=== PATIENT | female | born 1935 | race Caucasian/White ===

== ENCOUNTER 2018-08-14 18:39 | Emergency (ER) | payer MEDICARE, OTHER ==
[2018-08-14] MEDS ORDERED: Clindamycin HCl 150 MG Cap PO ONE (19:04)
--- NOTE | 2018-08-14 19:10 | EDM.PDOC ---
ED HPI GENERAL MEDICAL PROBLEM - General Chief Complaint: Skin Complaint Stated Complaint: CAT SCRATCHES Time Seen by Provider: 08/14/18 19:00 Source of Information: Reports: Patient History Limitations: Reports: No Limitations - History of Present Illness INITIAL COMMENTS - FREE TEXT/NARRATIVE: Redness and tenderness to inner right arm, scratched by own cat on wednesday. No fever or chills. Has been soaking in epsom salt but continues to get more red. 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) Right Lower Arm Pain Score (Numeric/FACES): 8 - Related Data Allergies Allergy/AdvReac Type Severity Reaction Status Date / Time calcium Allergy UNKOWN Verified 08/14/18 18:49 nicotine Allergy UNKNOWN Verified 08/14/18 18:49 Penicillins Allergy UNKNOWN Verified 08/14/18 18:49 [email or web address] Allergy Other Verified 08/14/18 18:49 Home Meds: Home Meds Albuterol/Ipratropium [DuoNeb 3.0-0.5 MG/3 ML] 1 each INH QID PRN 07/30/16 [ History] Budesonide [Budesonide EC] 3 mg PO BID 07/30/16 [History] oxyCODONE HCl/Acetaminophen [oxyCODONE-Acetaminophen 5-325] 1 tab PO QID [History] Gabapentin [Neurontin] 600 mg PO TID 08/14/18 [History] busPIRone [Buspar] 10 mg PO BID 08/14/18 [History] Past Medical History Cardiovascular History: Reports: High Cholesterol Respiratory History: Reports: COPD Gastrointestinal History: Reports: GERD Other Gastrointestinal History: ulcer Genitourinary History: Reports: None 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 Musculoskeletal History: Reports: Arthritis Neurological History: Reports: None Endocrine/Metabolic History: Reports: Hypothyroidism - Past Surgical History Cardiovascular Surgical History: Reports: Coronary Artery Bypass GI Surgical History: Reports: None Social & Family History - Family History Family Medical History: Noncontributory - Tobacco Use Smoking Status *Q: Current Every Day Smoker Years of Tobacco use: 63 Packs/Tins Daily: 1 Second Hand Smoke Exposure: Yes - Caffeine Use Caffeine Use: Reports: Coffee - Alcohol Use Days Per Week of Alcohol Use: 7 Number of Drinks Per Day: 1 Total Drinks Per Week: 7 Date of Last Drink: 08/14/18 - Recreational Drug Use Recreational Drug Use: No ED ROS GENERAL - Review of Systems Review Of Systems: ROS reveals no pertinent complaints other than HPI. ED EXAM, SKIN/RASH Exam: See Below Exam Limited By: No Limitations General Appearance: Alert, No Apparent Distress Eye Exam: Bilateral Eye: EOMI Ears: Normal External Exam, Hearing Grossly Normal Throat/Mouth: Normal Inspection Head: Atraumatic, Normocephalic Neck: Normal Inspection Respiratory/Chest: No Respiratory Distress, Normal Breath Sounds Cardiovascular: Normal Peripheral Pulses, Regular Rate, Rhythm GI/Abdominal: Normal Bowel Sounds, Soft Extremities: Normal Inspection, Normal Range of Motion Neurological: Alert, Oriented, Normal Cognition Psychiatric: Normal Affect Skin: Warm, Dry, Erythema, Wound/Incision Location, Skin: Upper Extremity, Right Characteristics: Confluent (12x5cm redness and warmth, 4 horizontal and vertical scratches above wrist), Erythematous. No: Vesicular Associated features: Warmth, Tenderness, Induration. No: Crusting, Weeping Course - Vital Signs Last Recorded V/S: Last Vital Signs Temp 98.5 F 08/14/18 18:56 Pulse 113 H 08/14/18 18:56 Resp 20 08/14/18 18:56 BP 130/84 08/14/18 18:56 Pulse Ox 97 08/14/18 18:56 - Orders/Labs/Meds Orders: Active Orders 24 hr Category Date Time Status Vaccines to be Administered [RC] PER UNIT ROUTINE Care 08/14/18 19:13 Ordered Meds: Medications Discontinued Medications Generic Name Dose Route Start Last Admin Trade Name Freq PRN Reason Stop Dose Admin Clindamycin HCl 300 mg 08/14/18 19:04 Cleocin PO 08/14/18 19:05 ONETIME ONE Diphtheria/Tetanus/Acell Pertussis 0.5 ml 08/14/18 19:13 Adacel IM 08/14/18 19:14 .ONCE ONE Departure - Departure Time of Disposition: 19:30 Disposition: Home, Self-Care 01 Condition: Good Clinical Impression: Cat scratch of forearm Qualifiers: Encounter type: initial encounter Laterality: right Qualified Code(s): S50.811A - Abrasion of right forearm, initial encounter; W55.03XA - Scratched by cat, initial encounter Cellulitis Qualifiers: Site of cellulitis: extremity Site of cellulitis of extremity: upper extremity Laterality: right Qualified Code(s): L03.113 - Cellulitis of right upper limb - Discharge Information *PRESCRIPTION DRUG MONITORING PROGRAM REVIEWED*: Not Applicable *COPY OF PRESCRIPTION DRUG MONITORING REPORT IN PATIENT MACK: Not Applicable Instructions: Cellulitis, Adult, [id number] Forms: ED Department Discharge Additional Instructions: keep area clean and dry tylenol 650mg every 4 hours as needed for discomfort clinic follow up if worsening or if fever clindamycin 300mg three times daily for one week probiotic - My Orders Last 24 Hours: My Active Orders 08/14/18 19:13 Vaccines to be Administered [RC] PER UNIT ROUTINE - Assessment/Plan Last 24 Hours: My Active Orders 08/14/18 19:13 Vaccines to be Administered [RC] PER UNIT ROUTINE
[2018-08-14] MEDS ORDERED: Diphtheria,Pertussis(Acell),Tetanus Vaccine 0.5 ML SDV IM ONE (19:13)
== END 2018-08-14 19:25 | disposition home or self-care (01) ==
LOC: DL.ED 18:39
DX: S50.811A Abrasion of right forearm, initial encounter (principal); L03.113 Cellulitis of right upper limb; E03.9 Hypothyroidism, unspecified; F17.210 Nicotine dependence, cigarettes, uncomplicated; Z88.0 Allergy status to penicillin; Z88.8 Allergy status to other drugs, medicaments and biological substances; Z23 Encounter for immunization; W55.03XA Scratched by cat, initial encounter
CPT/HCPCS: 90471; 90715; 99282; 99283; A9270

== ENCOUNTER 2018-11-26 07:02 | Inpatient (IN) | payer MEDICARE, OTHER ==
[2018-11-26] MEDS ORDERED: Acetaminophen 325 MG Tab PO ONE (07:16)
[2018-11-26] MEDS ORDERED: Albuterol/Ipratropium 3.0-0.5 MG/3 ML Neb Soln NEB ONE (07:40)
[2018-11-26] MEDS ORDERED: Albuterol/Ipratropium 3.0-0.5 MG/3 ML Neb Soln ONE (07:41)
--- NOTE | 2018-11-26 07:59 | EDM.PDOC ---
ED HPI GENERAL MEDICAL PROBLEM - General Chief Complaint: Respiratory Problem Stated Complaint: cant breathe [id number] Time Seen by Provider: 11/26/18 07:25 Source of Information: Reports: Patient History Limitations: Reports: No Limitations - History of Present Illness INITIAL COMMENTS - FREE TEXT/NARRATIVE: 83 year old female smoker with COPD & CAD presents with 24 hours of weakness and increase SOB, sore throat and sputum production. Developed a fever this am 101.8. Last duoneb at 0600. 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 Treatments - Related Data Allergies Allergy/AdvReac Type Severity Reaction Status Date / Time Penicillins Allergy Severe Airway Verified 11/26/18 08:29 Tightness nicotine Allergy Rash Verified 11/26/18 13:10 [email or web address] Allergy Other Verified 11/26/18 07:25 Home Meds: Home Meds Albuterol/Ipratropium [DuoNeb 3.0-0.5 MG/3 ML] 1 each INH QID PRN 07/30/16 [ History] oxyCODONE HCl/Acetaminophen [oxyCODONE-Acetaminophen 5-325] 1 tab PO QID [History] Gabapentin [Neurontin] 600 mg PO TID 08/14/18 [History] DULoxetine [Cymbalta] 60 mg PO DAILY 11/26/18 [History] Fluticasone/Salmeterol [Advair 250-50] 1 puff INH BID 11/26/18 [History] Past Medical History Cardiovascular History: Reports: High Cholesterol Respiratory History: Reports: COPD Gastrointestinal History: Reports: GERD Other Gastrointestinal History: ulcer Genitourinary History: Reports: None 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 Musculoskeletal History: Reports: Arthritis Neurological History: Reports: None Endocrine/Metabolic History: Reports: Hypothyroidism - Past Surgical History HEENT Surgical History: Reports: Tonsillectomy Cardiovascular Surgical History: Reports: Coronary Artery Bypass GI Surgical History: Reports: None Social & Family History - Family History Family Medical History: Noncontributory - Tobacco Use Smoking Status *Q: Current Every Day Smoker Years of Tobacco use: 40 Packs/Tins Daily: 1 - Caffeine Use Caffeine Use: Reports: Coffee - Alcohol Use Days Per Week of Alcohol Use: 3 Number of Drinks Per Day: 2 Total Drinks Per Week: 6 - Recreational Drug Use Recreational Drug Use: No ED ROS GENERAL - Review of Systems Review Of Systems: See Below Constitutional: Reports: Fever, Chills, Weakness, Fatigue, Decreased Appetite Respiratory: Reports: Shortness of Breath, Wheezing, Sputum Cardiovascular: Reports: No Symptoms Endocrine: Reports: Fatigue GI/Abdominal: Reports: No Symptoms : Reports: No Symptoms Skin: Reports: No Symptoms Neurological: Reports: No Symptoms Free Text/Narrative/Comment: Good support with daughter at bedside. ED EXAM, GENERAL - Physical Exam Exam: See Below Exam Limited By: No Limitations General Appearance: Alert, WD/WN, Mild Distress Eye Exam: Bilateral Eye: Normal Inspection Ears: Normal External Exam, Normal Canal, Hearing Grossly Normal, Normal TMs Nose: Normal Inspection, Normal Mucosa, No Blood Throat/Mouth: Normal Inspection, Normal Lips, Normal Voice Head: Atraumatic, Normocephalic Neck: Normal Inspection, Supple, Non-Tender Respiratory/Chest: Other (Decreased right LL) Peripheral Pulses: 3+: Radial (L), Radial (R), Dorsalis Pedis (L), Dorsalis Pedis (R) GI/Abdominal: Normal Bowel Sounds, Soft, Non-Tender, No Organomegaly, No Distention, No Mass Extremities: Normal Inspection, No Pedal Edema, Normal Capillary Refill Neurological: Alert, Oriented Psychiatric: Normal Affect, Normal Mood Skin Exam: Warm, Dry, Intact, Normal Color, No Rash Lymphatic: No Adenopathy Course - Vital Signs Text/Narrative:: Placed on 2L n/c. CBC, CMP, UA, lactic acid, CXR, EKG, troponin, Bld cultures x2 , sputum culture. Duoneb given Trop neg and EKG NSR CXR wtih Right lower and middle lobe pneumonia. lactic acid & creat nml. BNP 137. CBC elevated 14 without bands. Infused Azithromycin IV and Contacted Dr. Menard for admission CAP with leukocytosis. Admitted by Dr. Menard Last Recorded V/S: Last Vital Signs Temp 36.8 C 11/26/18 14:02 Pulse 84 11/26/18 14:02 Resp 20 11/26/18 14:02 BP 103/41 L 11/26/18 14:02 Pulse Ox 96 11/26/18 14:02 - Orders/Labs/Meds Orders: Active Orders 24 hr Category Date Time Status Oxygen Therapy [RC] PRN Care 11/26/18 08:55 Active Pneumonia Education [RC] Click to Edit Care 11/26/18 08:55 Active RT Aerosol Therapy [RC] ASDIRECTED Care 11/26/18 08:51 Active Chest 2V [CR] Urgent Exams 11/26/18 07:49 Taken CULTURE BLOOD [] Stat Lab 11/26/18 07:24 Received CULTURE BLOOD [] Stat Lab 11/26/18 07:32 Received CULTURE STREP A CONFIRMATION [] Stat Lab 11/26/18 07:54 Results STREP SCRN A RAPID W CULT CONF [] Stat Lab 11/26/18 07:54 Results Acetaminophen/oxyCODONE [Percocet 325-5 MG] Med 11/26/18 09:00 Active 1 tab PO QID Albuterol/Ipratropium [DuoNeb 3.0-0.5 MG/3 ML] Med 11/26/18 11:00 Active 3 ml INH QIDRT DULoxetine [Cymbalta] Med 11/26/18 09:15 Active 60 mg PO DAILY Gabapentin [Neurontin] Med 11/26/18 09:15 Active 600 mg PO TID Sodium Chloride 0.9% [Normal Saline] 1,000 ml Med 11/26/18 09:00 Active IV ASDIRECTED Blood Culture x2 Reflex Set [OM.PC] Stat Oth 11/26/18 07:49 Ordered Blood Culture x2 Reflex Set [OM.PC] Stat Ot 11/26/18 08:55 Ordered Medication Orders Acetaminophen (Tylenol) 650 mg PO Q4H PRN PRN Reason: Pain (Mild 1-3)/fever Albuterol/Ipratropium (Duoneb 3.0-0.5 Mg/3 Ml) 3 ml INH QIDRT [facility] Last Admin: 11/26/18 17:32 Dose: 3 ml Admin: 11/26/18 11:03 Dose: 3 ml Duloxetine HCl (Cymbalta) 60 mg PO DAILY [facility] Last Admin: 11/26/18 10:18 Dose: 60 mg Enoxaparin Sodium (Lovenox) 40 mg SUBCUT DAILY [facility] Last Admin: 11/26/18 10:17 Dose: 40 mg Gabapentin (Neurontin) 600 mg PO TID [facility] Last Admin: 11/26/18 15:02 Dose: 600 mg Admin: 11/26/18 10:18 Dose: 600 mg Sodium Chloride (Normal Saline) 1,000 mls @ 75 mls/hr IV ASDIRECTED [facility] Last Admin: 11/26/18 10:31 Dose: 75 mls/hr Levofloxacin/Dextrose 750 mg/ (Premix) 150 mls @ 150 mls/hr IV Q48H [facility] Loperamide HCl (Imodium) 2 mg PO TID PRN PRN Reason: Diarrhea Methylprednisolone Sodium Succinate (Solu-Medrol) 40 mg IVPUSH Q8H [facility] Last Admin: 11/26/18 17:32 Dose: 40 mg Admin: 11/26/18 10:29 Dose: 40 mg Mometasone Furoate/Formoterol Fumar (Dulera 200-5 Mcg) 2 puff IH BIDRT [facility] Last Admin: 11/26/18 18:19 Dose: 2 puff Nicotine (Habitrol) 21 mg TRDERM DAILY [facility] Last Admin: 11/26/18 13:05 Dose: 21 mg Oxycodone/Acetaminophen (Percocet 325-5 Mg) 1 tab PO QID [facility] Last Admin: 11/26/18 17:32 Dose: 1 tab Admin: 11/26/18 13:06 Dose: Not Given Admin: 11/26/18 10:19 Dose: 1 tab Sodium Chloride (Saline Flush) 10 ml FLUSH ASDIRECTED PRN PRN Reason: Keep Vein Open Labs: Laboratory Tests 11/26/18 11/26/18 11/26/18 Range/Units 07:24 07:24 07:24 WBC 14.1 H (5.0-10.0) 10^3/uL RBC 4.95 (4.2-5.4) 10^6/uL Hgb 14.3 D (12.0-16.0) g/dL Hct 43.7 (37.0-47.0) % MCV 88.3 (80-100) fL MCH 28.9 (27.0-34.0) pg MCHC 32.7 L (33.0-35.0) g/dL Plt Count 212 (150-450) 10^3/uL Neut % (Auto) 88.2 H (42.2-75.2) % Lymph % (Auto) 5.0 L (20.5-50.1) % [place]gett % (Auto) 6.3 (2-8) % Eos % (Auto) 0.3 L (1.0-3.0) % Baso % (Auto) 0.2 (0.0-1.0) % Sodium 135 (135-145) mmol/L Potassium 4.2 (3.6-5.0) mmol/L Chloride 98 L (101-111) mmol/L Carbon Dioxide 23.0 (21.0-31.0) mmol/L Anion Gap 18.2 BUN 16 (7-18) mg/dL Creatinine 0.8 (0.6-1.3) mg/dL Est Cr Clr Drug Dosing 43.62 mL/min Estimated GFR (MDRD) > 60 BUN/Creatinine Ratio 20.00 Glucose 102 (74-105) mg/dL Lactic Acid 1.7 (0.5-2.2) mmol/L Calcium 8.8 (8.4-10.2) mg/dl Total Bilirubin 0.7 (0.2-1.0) mg/dL AST 37 (10-42) IU/L ALT 24 (10-60) IU/L Alkaline Phosphatase 68 (42-121) IU/L Troponin I (0.00-0.08) ng/mL B-Natriuretic Peptide (0-100) pg/ml Total Protein 7.4 (6.7-8.2) g/dl Albumin 4.1 (3.2-5.5) g/dl Globulin 3.3 Albumin/Globulin Ratio 1.24 05/25/19 Range/Units 07:24 WBC (5.0-10.0) 10^3/uL RBC (4.2-5.4) 10^6/uL Hgb (12.0-16.0) g/dL Hct (37.0-47.0) % MCV (80-100) fL MCH (27.0-34.0) pg MCHC (33.0-35.0) g/dL Plt Count (150-450) 10^3/uL Neut % (Auto) (42.2-75.2) % Lymph % (Auto) (20.5-50.1) % Daggett % (Auto) (2-8) % Eos % (Auto) (1.0-3.0) % Baso % (Auto) (0.0-1.0) % Sodium (135-145) mmol/L Potassium (3.6-5.0) mmol/L Chloride (101-111) mmol/L Carbon Dioxide (21.0-31.0) mmol/L Anion Gap BUN (7-18) mg/dL Creatinine (0.6-1.3) mg/dL Est Cr Clr Drug Dosing mL/min Estimated GFR (MDRD) BUN/Creatinine Ratio Glucose (74-105) mg/dL Lactic Acid (0.5-2.2) mmol/L Calcium (8.4-10.2) mg/dl Total Bilirubin (0.2-1.0) mg/dL AST (10-42) IU/L ALT (10-60) IU/L Alkaline Phosphatase (42-121) IU/L Troponin I 0.01 (0.00-0.08) ng/mL B-Natriuretic Peptide 137 H (0-100) pg/ml Total Protein (6.7-8.2) g/dl Albumin (3.2-5.5) g/dl Globulin Albumin/Globulin Ratio Meds: Medications Generic Name Dose Route Start Last Admin Trade Name Freq PRN Reason Stop Dose Admin Acetaminophen 650 mg 11/26/18 08:59 Tylenol PO Q4H PRN Pain (Mild 1-3)/fever Albuterol/Ipratropium 3 ml 11/26/18 11:00 11/26/18 17:32 Duoneb 3.0-0.5 Mg/3 Ml INH 3 ml QIDRT [facility] Administration Duloxetine HCl 60 mg 11/26/18 09:15 11/26/18 10:18 Cymbalta PO 60 mg DAILY [facility] Administration Enoxaparin Sodium 40 mg 11/26/18 09:15 11/26/18 10:17 Lovenox SUBCUT 40 mg DAILY [facility] Administration Gabapentin 600 mg 11/26/18 09:15 11/26/18 15:02 Neurontin PO 600 mg TID [facility] Administration Sodium Chloride 1,000 mls @ 75 mls/hr 11/26/18 09:00 11/26/18 10:31 Normal Saline IV 75 mls/hr ASDIRECTED [facility] Administration Levofloxacin/Dextrose 750 mg/ 150 mls @ 150 mls/hr 11/28/18 10:00 Premix IV Q48H [facility] Loperamide HCl 2 mg 11/26/18 12:08 Imodium PO TID PRN Diarrhea Methylprednisolone Sodium Succinate 40 mg 11/26/18 10:00 11/26/18 17:32 Solu-Medrol IVPUSH 40 mg Q8H [facility] Administration Mometasone Furoate/Formoterol Fumar 2 puff 11/26/18 18:00 11/26/18 18:19 Dulera 200-5 Mcg IH 2 puff BIDRT [facility] Administration Nicotine 21 mg 11/26/18 10:15 11/26/18 13:05 Habitrol TRDERM 21 mg DAILY [facility] Administration Oxycodone/Acetaminophen 1 tab 11/26/18 09:00 11/26/18 17:32 Percocet 325-5 Mg PO 1 tab QID [facility] Administration Sodium Chloride 10 ml 11/26/18 10:53 Saline Flush FLUSH ASDIRECTED PRN Keep Vein Open Discontinued Medications Generic Name Dose Route Start Last Admin Trade Name Freq PRN Reason Stop Dose Admin Acetaminophen 650 mg 11/26/18 07:16 11/26/18 07:29 Tylenol PO 11/26/18 07:17 650 mg NOW ONE Administration Albuterol/Ipratropium Confirm 11/26/18 07:41 11/26/18 07:54 Duoneb 3.0-0.5 Mg/3 Ml Administered 11/26/18 07:42 3 ml Dose Administration 3 ml .ROUTE .STK-MED ONE Albuterol/Ipratropium 3 ml 11/26/18 07:40 11/26/18 08:52 Duoneb 3.0-0.5 Mg/3 Ml NEB 11/26/18 07:41 Not Given ONETIME ONE Azithromycin 500 mg/ Sodium 250 mls @ 250 mls/hr 11/26/18 08:26 11/26/18 08: 38 Chloride IV 11/26/18 09:25 250 mls/hr ONETIME ONE Administration Levofloxacin/Dextrose 750 mg/ 150 mls @ 150 mls/hr 11/26/18 09:00 11/26/18 10 :19 Premix IV 150 mls/hr Q24H [facility] Administration Non-Formulary Medication 3 mg 11/26/18 09:00 11/26/18 13:08 Budesonide [Budesonide Ec] PO Not Given BID [facility] Departure - Departure Time of Disposition: 09:30 Disposition: Admitted As Inpatient 68 Clinical Impression: CAP (community acquired pneumonia), Leukocytosis, COPD (chronic obstructive pulmonary disease) - Discharge Information *PRESCRIPTION DRUG MONITORING PROGRAM REVIEWED*: Not Applicable *COPY OF PRESCRIPTION DRUG MONITORING REPORT IN PATIENT MACK: Not Applicable - My Orders Last 24 Hours: My Active Orders 11/26/18 07:24 CULTURE BLOOD [BC] Stat 11/26/18 07:32 CULTURE BLOOD [BC] Stat 11/26/18 07:49 Chest 2V [CR] Urgent Blood Culture x2 Reflex Set [OM.PC] Stat 11/26/18 07:54 CULTURE STREP A CONFIRMATION [RM] Stat STREP SCRN A RAPID W CULT CONF [RM] Stat 11/26/18 08:51 RT Aerosol Therapy [RC] ASDIRECTED - Assessment/Plan Last 24 Hours: My Active Orders 11/26/18 07:24 CULTURE BLOOD [BC] Stat 11/26/18 07:32 CULTURE BLOOD [BC] Stat 11/26/18 07:49 Chest 2V [CR] Urgent Blood Culture x2 Reflex Set [OM.PC] Stat 11/26/18 07:54 CULTURE STREP A CONFIRMATION [RM] Stat STREP SCRN A RAPID W CULT CONF [RM] Stat 11/26/18 08:51 RT Aerosol Therapy [RC] ASDIRECTED Plan: Admission to hospital by Dr. Menard.
[2018-11-26 08:08] LABS: ANION GAP 18.2; CHLORIDE,CL 98 mmol/L (101-111); SODIUM,NA 135 mmol/L (135-145)
[2018-11-26] MEDS ORDERED: Azithromycin 500 MG in Sodium Chloride 0.9% 250 ML IV ONE (08:26)
[2018-11-26] MEDS ORDERED: Acetaminophen 325 MG Tab PO PRN (08:59)
[2018-11-26] MEDS ORDERED: Non-Formulary Medication 1 Each (Budesonide [Budesonide Ec] 3 MG) PO SCH (09:00)
[2018-11-26] MEDS ORDERED: Levofloxacin/Dextrose 5%-Water 750 MG in Premix Bag 1 BAG IV SCH (09:00)
--- NOTE | 2018-11-26 10:13 | HP ---
CHIEF COMPLAINT: Shortness of breath. HISTORY OF PRESENT ILLNESS: The patient is an 83-year-old lady who was admitted through the emergency room because the patient was complaining of increasing shortness of breath that started for the last 24 hours and this is also complicated by a productive cough with phlegm, fever and chills, and generalized weakness. She denies though any chest pain, orthopnea, PND, abdominal pain, pedal edema, nausea, vomiting, or any other associated symptoms. Because of this, she presented to the emergency room and she was noted to have right middle lobe pneumonia. She was then admitted for further evaluation and management. PAST MEDICAL HISTORY: Remarkable for COPD on oxygen, and she is a smoker and continues to smoke about a pack a day. She has history of coronary artery disease and coronary artery bypass graft, hypothyroidism, arthritis, and gastroesophageal reflux. SOCIAL HISTORY: She is a . Smokes about a pack a day and drinks alcohol occasionally. FAMILY HISTORY: Noncontributory. REVIEW OF SYSTEMS: As in HPI. The rest of the review of systems is negative. MEDICATIONS: DuoNeb, budesonide, oxycodone, gabapentin, and BuSpar. ALLERGIES: Penicillin, varenicline, nicotine, and calcium. PHYSICAL EXAMINATION: General: The patient is alert and oriented, in mild respiratory distress, on oxygen per nasal cannula. Vital Signs: Blood pressure is 130/65, pulse of 118, respiration of 24, temperature of 101.8, and saturation is 94% on 1.5 L per nasal cannula. SHENT: Normocephalic. There are pink palpebral conjunctivae. Sclerae anicteric. No JVD. No lymphadenopathy. Heart: Regular. No gallops. No rubs. Lungs: Has diminished breath sounds on both bases with faint crackles on the right lung field. Breath sounds equal. Abdomen: Soft and nontender. Bowel sounds positive. Extremities: Negative for any pedal edema. No calf tenderness. LABORATORY WORKUP: Chest x-ray, my reading, is remarkable for COPD and right middle lobe pneumonia. CBC: WBC is 14.1 with 88.2 neutrophils. Hemoglobin and hematocrit are within normal limits. Platelet is 212. Comp panel: Chloride is 98. The rest of the panel unremarkable. ADMITTING DIAGNOSES: 1. Right middle lobe pneumonia. 2. Chronic obstructive pulmonary disease exacerbation. 3. Coronary artery disease and history of coronary artery bypass graft. 4. Tobacco dependence. 5. Arthritis. 6. Gastroesophageal reflux. TREATMENT PLAN: The patient is going to be admitted to General Medicine floor. She will be started on IV antibiotics and IV steroids, and will be on bronchodilators and Lovenox for DVT prophylaxis, and the rest of the management as necessary. The patient is a [id number] and [id number]. [facility] /[id number]
[2018-11-26] MEDS: Enoxaparin 40 MG/0.4 ML Syringe SUBCUT SCH (10:17)
[2018-11-26] MEDS: DULoxetine 30 MG Cap PO SCH (10:18)
[2018-11-26] MEDS: Gabapentin 300 MG Cap PO SCH ×3 (10:18→21:53)
[2018-11-26] MEDS: Acetaminophen/oxyCODONE 325-5 MG Tab PO SCH ×4 (10:19→21:53)
[2018-11-26] MEDS: methylPREDNISolone Sodium Succinate 40 MG/1 ML SDV IVPUSH SCH ×2 (10:29→17:32)
[2018-11-26] MEDS: Sodium Chloride 0.9% 1,000 ML IV SCH (10:31)
[2018-11-26] MEDS: Albuterol/Ipratropium 3.0-0.5 MG/3 ML Neb Soln INH SCH ×3 (11:03→21:52)
[2018-11-26] MEDS ORDERED: Loperamide 2 MG Cap PO PRN (12:08)
[2018-11-26] MEDS: Nicotine 21 MG/24 Hr Patch TRDERM SCH (13:05)
[2018-11-26] MEDS: Formoterol/Mometasone 200-5 MCG 8.8 GM Inhaler IH SCH (18:19)
[2018-11-27] MEDS: Sodium Chloride 0.9% 1,000 ML IV SCH (00:45)
[2018-11-27] MEDS: methylPREDNISolone Sodium Succinate 40 MG/1 ML SDV IVPUSH SCH ×3 (02:23→17:42)
[2018-11-27] MEDS: Formoterol/Mometasone 200-5 MCG 8.8 GM Inhaler IH SCH ×2 (06:29→17:42)
[2018-11-27 06:46] LABS: CHLORIDE,CL 103 mmol/L (101-111); SODIUM,NA 137 mmol/L (135-145)
[2018-11-27] MEDS: Albuterol/Ipratropium 3.0-0.5 MG/3 ML Neb Soln INH SCH ×4 (07:27→20:49)
[2018-11-27] MEDS: Acetaminophen/oxyCODONE 325-5 MG Tab PO SCH ×4 (09:03→20:48)
[2018-11-27] MEDS: DULoxetine 30 MG Cap PO SCH (09:03)
[2018-11-27] MEDS: Gabapentin 300 MG Cap PO SCH ×3 (09:03→20:48)
[2018-11-27] MEDS: Nicotine 21 MG/24 Hr Patch TRDERM SCH (09:04)
[2018-11-27] MEDS: Enoxaparin 40 MG/0.4 ML Syringe SUBCUT SCH (09:04)
[2018-11-28] MEDS: Sodium Chloride 0.9% 10 ML Syringe FLUSH PRN ×2 (02:24→02:31)
[2018-11-28] MEDS: methylPREDNISolone Sodium Succinate 40 MG/1 ML SDV IVPUSH SCH (02:24)
[2018-11-28] MEDS: Albuterol/Ipratropium 3.0-0.5 MG/3 ML Neb Soln INH SCH ×4 (07:07→21:19)
[2018-11-28] MEDS: Enoxaparin 40 MG/0.4 ML Syringe SUBCUT SCH (09:08)
[2018-11-28] MEDS: Acetaminophen/oxyCODONE 325-5 MG Tab PO SCH ×4 (09:08→21:18)
[2018-11-28] MEDS: Gabapentin 300 MG Cap PO SCH ×3 (09:08→21:17)
[2018-11-28] MEDS: DULoxetine 30 MG Cap PO SCH (09:08)
[2018-11-28] MEDS: Nicotine 21 MG/24 Hr Patch TRDERM SCH (09:09)
[2018-11-28] MEDS: Formoterol/Mometasone 200-5 MCG 8.8 GM Inhaler IH SCH ×2 (09:11→17:57)
[2018-11-28] MEDS ORDERED: Levofloxacin/Dextrose 5%-Water 750 MG in Premix Bag 1 BAG IV SCH (10:00)
--- NOTE | 2018-11-28 10:15 | PN ---
DATE: 11/28/2018 SUBJECTIVE: The patient continues to do well and sputum culture showing Enterobacter, which is susceptible to levofloxacin. The patient denies any worsening of shortness of breath, and she feels though that she is feeling slightly jittery with the Solu-Medrol, but she denies any chest pain, orthopnea, PND, abdominal pain, nor any other complaints. OBJECTIVE: Vital Signs: Blood pressure is 137/64, pulse of 88, respirations 20, and temperature of 98.1, and saturation is 93% on room air. Heart: Regular rate and rhythm. Normal S1 and S2. No gallops. No rubs. Lungs: Equal bilaterally. There is still some mild occasional wheeze on the right lung field, but the breath sounds are equal. Abdomen: Soft, nontender. Bowel sounds positive. Extremities: Negative for any significant pedal edema. No calf tenderness. MEDICATIONS: Reviewed. PLAN: We will continue with her present management. I am going to discontinue Solu-Medrol and we will change this to oral prednisone. [facility] /[id number]
[2018-11-28] MEDS: predniSONE 20 MG Tab PO SCH (12:26)
[2018-11-29] MEDS: Albuterol/Ipratropium 3.0-0.5 MG/3 ML Neb Soln INH SCH ×2 (07:24→11:13)
--- NOTE | 2018-11-29 07:30 | PN ---
DATE: 11/27/2018 SUBJECTIVE: The patient this morning was feeling slightly better and she is not even wearing her oxygen as she only uses oxygen at home during nighttime. The patient denies any chest pain, palpitation, orthopnea, PND, nor any other complaints. LABORATORY DATA: Lab workup this morning, CBC; WBC is 14.9, hemoglobin is 12.1, hematocrit is 37.2, platelet is 202. Chem-6; BUN is 21 and glucose is 138. The rest of the panel unremarkable. OBJECTIVE: Vital Signs: Blood pressure is 93/59, pulse of 93, respirations 20, and temperature of 97.8. Heart: Regular rate and rhythm. Normal S1 and S2. No gallops. No rubs. Lungs: Diminished breath sounds on both bases, but no significant crackles. No wheezing. Abdomen: Soft, nontender. Bowel sounds positive. Extremities: Negative for any pedal edema. No calf tenderness. MEDICATIONS: Reviewed. PLAN: We will continue with her IV antibiotics (Levaquin) and the rest of her management. [facility] /[id number]
[2018-11-29] MEDS ORDERED: predniSONE 20 MG Tab PO SCH (08:00)
[2018-11-29] MEDS: Acetaminophen/oxyCODONE 325-5 MG Tab PO SCH (09:30)
[2018-11-29] MEDS: DULoxetine 30 MG Cap PO SCH (09:31)
[2018-11-29] MEDS: Gabapentin 300 MG Cap PO SCH (09:32)
[2018-11-29] MEDS: predniSONE 20 MG Tab PO SCH (09:33)
[2018-11-29] MEDS: Nicotine 21 MG/24 Hr Patch TRDERM SCH (09:34)
[2018-11-29] MEDS: Enoxaparin 40 MG/0.4 ML Syringe SUBCUT SCH (09:35)
[2018-11-29] MEDS: Formoterol/Mometasone 200-5 MCG 8.8 GM Inhaler IH SCH (09:35)
--- NOTE | 2018-11-29 11:14 | PCM.DCSUM1 ---
Discharge Summary - Hospital Course Free Text/Narrative:: The patient presented to the emergency room with complaint of cough and shortness of breath. This was going on for several days. She was found to have leukocytosis and chest x-ray suggested pneumonia. Patient was diagnosed with community-acquired pneumonia and started on intravenous antibiotics levofloxacin. She is allergic to penicillin. Patient is feeling better and will be discharged home. Final diagnosis Community-acquired pneumonia COPD exacerbation Coronary artery disease status post coronary artery bypass graft Tobacco use disorder - Discharge Data Discharge Date: 11/29/18 Discharge Disposition: Home, Self-Care 01 Condition: Good - Patient Instructions Other/Special Instructions: f/up with PMD in one week - Discharge Plan *PRESCRIPTION DRUG MONITORING PROGRAM REVIEWED*: Not Applicable *COPY OF PRESCRIPTION DRUG MONITORING REPORT IN PATIENT MACK: Not Applicable Prescriptions/Med Rec: levoFLOXacin [Levaquin] 750 mg PO DAILY #7 tab predniSONE [Prednisone] 10 mg PO DAILY #4 tablet Home Medications: Home Meds Albuterol/Ipratropium [DuoNeb 3.0-0.5 MG/3 ML] 1 each INH QID PRN 07/30/16 [ History] oxyCODONE HCl/Acetaminophen [oxyCODONE-Acetaminophen 5-325] 1 tab PO QID [History] Gabapentin [Neurontin] 600 mg PO TID 08/14/18 [History] DULoxetine [Cymbalta] 60 mg PO DAILY 11/26/18 [History] Fluticasone/Salmeterol [Advair 250-50] 1 puff INH BID 11/26/18 [History] levoFLOXacin [Levaquin] 750 mg PO DAILY #7 tab 11/29/18 [Rx] predniSONE [Prednisone] 10 mg PO DAILY #4 tablet 11/29/18 [Rx] Patient Handouts: Steps to Quit Smoking, [id number], Coping with Quitting Smoking, Levofloxacin tablets, Prednisone tablets, Community-Acquired Pneumonia , Adult, [id number] Referrals: Kell Lin PA [Primary Care Provider] - - Discharge Summary/Plan Comment DC Time >30 min.: No - Review of Systems General: Reports: No Symptoms Pulmonary: Reports: Cough Cardiovascular: Reports: No Symptoms Gastrointestinal: Reports: No Symptoms Genitourinary: Reports: No Symptoms - Patient Data Vitals - Most Recent: Last Vital Signs Temp 36.3 C 05/28/19 07:00 Pulse 90 11/29/18 07:24 Resp 20 11/29/18 07:00 BP 136/77 11/29/18 07:00 Pulse Ox 96 11/29/18 08:00 Weight - Most Recent: 65.68 kg I&O - Last 24 hours: Intake & Output 11/28/18 11/29/18 11/29/18 22:59 06:59 14:59 Intake Total 360 100 Output Total 500 Balance 360 -500 100 ADRIEL Results - Last 24 hrs: Microbiology 11/26/18 07:32 Aerobic Blood Culture - Preliminary Blood - Venous - Lab Draw NO GROWTH AFTER 3 DAYS Anaerobic Blood Culture - Preliminary NO GROWTH AFTER 3 DAYS 11/26/18 07:24 Aerobic Blood Culture - Preliminary Blood - Venous NO GROWTH AFTER 3 DAYS Anaerobic Blood Culture - Preliminary NO GROWTH AFTER 3 DAYS 11/26/18 09:06 Gram Stain - Final Sputum - Expectorated Sputum Culture - Final Enterobacter Cloacae Med Orders - Current: Current Medications Acetaminophen (Tylenol) 650 mg PO Q4H PRN PRN Reason: Pain (Mild 1-3)/fever Albuterol/Ipratropium (Duoneb 3.0-0.5 Mg/3 Ml) 3 ml INH QIDRT COUNTS INCLUDE 234 BEDS AT THE [facility] Last Admin: 11/29/18 07:24 Dose: 3 ml Duloxetine HCl (Cymbalta) 60 mg PO DAILY COUNTS INCLUDE 234 BEDS AT THE [facility] Last Admin: 11/29/18 09:31 Dose: 60 mg Enoxaparin Sodium (Lovenox) 40 mg SUBCUT DAILY COUNTS INCLUDE 234 BEDS AT THE [facility] Last Admin: 11/29/18 09:35 Dose: 40 mg Gabapentin (Neurontin) 600 mg PO TID COUNTS INCLUDE 234 BEDS AT THE [facility] Last Admin: 11/29/18 09:32 Dose: 600 mg Levofloxacin/Dextrose 750 mg/ (Premix) 150 mls @ 150 mls/hr IV Q48H COUNTS INCLUDE 234 BEDS AT THE [facility] Last Admin: 11/28/18 10:18 Dose: 150 mls/hr Loperamide HCl (Imodium) 2 mg PO TID PRN PRN Reason: Diarrhea Last Admin: 11/28/18 16:44 Dose: 2 mg Mometasone Furoate/Formoterol Fumar (Dulera 200-5 Mcg) 2 puff IH BIDRT COUNTS INCLUDE 234 BEDS AT THE [facility] Last Admin: 11/29/18 09:35 Dose: 2 puff Nicotine (Habitrol) 21 mg TRDERM DAILY COUNTS INCLUDE 234 BEDS AT THE [facility] Last Admin: 11/29/18 09:34 Dose: 21 mg Oxycodone/Acetaminophen (Percocet 325-5 Mg) 1 tab PO QID COUNTS INCLUDE 234 BEDS AT THE [facility] Last Admin: 11/29/18 09:30 Dose: 1 tab Prednisone (Prednisone) 40 mg PO WITHBREAKFAST COUNTS INCLUDE 234 BEDS AT THE [facility] Last Admin: 11/29/18 09:33 Dose: 40 mg Sodium Chloride (Saline Flush) 10 ml FLUSH ASDIRECTED PRN PRN Reason: Keep Vein Open Last Admin: 11/28/18 02:31 Dose: 10 ml Discontinued Medications Acetaminophen (Tylenol) 650 mg PO NOW ONE Stop: 11/26/18 07:17 Last Admin: 11/26/18 07:29 Dose: 650 mg Albuterol/Ipratropium (Duoneb 3.0-0.5 Mg/3 Ml) Confirm Administered Dose 3 ml .ROUTE .STK-MED ONE Stop: 11/26/18 07:42 Last Admin: 11/26/18 07:54 Dose: 3 ml Albuterol/Ipratropium (Duoneb 3.0-0.5 Mg/3 Ml) 3 ml NEB ONETIME ONE Stop: 11/26/18 07:41 Last Admin: 11/26/18 08:52 Dose: Not Given Azithromycin 500 mg/ Sodium (Chloride) 250 mls @ 250 mls/hr IV ONETIME ONE Stop: 11/26/18 09:25 Last Admin: 11/26/18 08:38 Dose: 250 mls/hr Levofloxacin/Dextrose 750 mg/ (Premix) 150 mls @ 150 mls/hr IV Q24H COUNTS INCLUDE 234 BEDS AT THE [facility] Last Admin: 11/26/18 10:19 Dose: 150 mls/hr Sodium Chloride (Normal Saline) 1,000 mls @ 75 mls/hr IV ASDIRECTED COUNTS INCLUDE 234 BEDS AT THE [facility] Last Admin: 11/27/18 00:45 Dose: 75 mls/hr Methylprednisolone Sodium Succinate (Solu-Medrol) 40 mg IVPUSH Q8H COUNTS INCLUDE 234 BEDS AT THE [facility] Last Admin: 11/28/18 02:24 Dose: 40 mg Non-Formulary Medication (Budesonide [Budesonide Ec]) 3 mg PO BID COUNTS INCLUDE 234 BEDS AT THE [facility] Last Admin: 11/26/18 13:08 Dose: Not Given Prednisone (Prednisone) 40 mg PO WITHBREAKFAST COUNTS INCLUDE 234 BEDS AT THE [facility] - Exam General: Reports: Alert, Oriented, Cooperative HEENT: Reports: Pupils Equal, Pupils Reactive, EOMI, Mucous Membr. Moist/[place] Neck: Reports: Supple Lungs: Reports: Clear to Auscultation, Normal Respiratory Effort
== END 2018-11-29 11:30 | disposition home or self-care (01) | DRG 190 ==
LOC: DL.ED 07:02 → DL.MS 08:44 → UNDOADMIN 08:44 → DL.MS 08:59
PROVIDERS: ADMIT Internal Medicine; ATTEND Hospitalist
DX: J44.0 Chronic obstructive pulmonary disease with (acute) lower respiratory infection (principal); J18.1 Lobar pneumonia, unspecified organism; J44.1 Chronic obstructive pulmonary disease with (acute) exacerbation; I25.10 Atherosclerotic heart disease of native coronary artery without angina pectoris; Z66 Do not resuscitate; E78.00 Pure hypercholesterolemia, unspecified; K21.9 Gastro-esophageal reflux disease without esophagitis; M19.90 Unspecified osteoarthritis, unspecified site; M19.91 Primary osteoarthritis, unspecified site; E03.9 Hypothyroidism, unspecified; F17.210 Nicotine dependence, cigarettes, uncomplicated; Z88.0 Allergy status to penicillin; Z95.1 Presence of aortocoronary bypass graft; Z99.81 Dependence on supplemental oxygen; Z88.8 Allergy status to other drugs, medicaments and biological substances; Z79.899 Other long term (current) drug therapy; R05 Cough; R06.02 Shortness of breath; R53.1 Weakness; R50.9 Fever, unspecified; R09.3 Abnormal sputum; R53.83 Other fatigue; R06.2 Wheezing; D72.829 Elevated white blood cell count, unspecified
CPT/HCPCS: 36415; 71046; 80053; 83605; 83880; 84484; 85025; 87040 ×2; 87081; 87430; 94640; 96365; 99285; A9270; J0456; J7050; 80048; 81001; 87070; 87077; 87186; 87205; 94010; 94667; A4217; J1650; J1956; J2920; J7030; J7620-GY

== ENCOUNTER 2019-12-04 12:29 | Emergency (ER) | payer MEDICARE, OTHER ==
--- NOTE | 2019-12-04 12:51 | EDM.PDOC ---
ED HPI GENERAL MEDICAL PROBLEM - General Chief Complaint: Chest Pain Stated Complaint: PRESSURE IN CHEST Time Seen by Provider: 12/04/19 12:49 Source of Information: Reports: Patient, Old Records, RN, RN Notes Reviewed History Limitations: Reports: No Limitations - History of Present Illness INITIAL COMMENTS - FREE TEXT/NARRATIVE: Pt presents to ER from home by POV with c/o left sided chest pressure with shortness of breath, fatigue, and generalized weakness for the past 2 weeks. She has tried her Nitroglycerin at home a few times without relief. Pt saw primary provider last week and was started on Levaquin, and Prednisone but she has seen no improvement. Pt uses supplemental home oxygen every night on 5L/min , but does not use it during the day. She used Budesonide nebulizer twice a day , and Albuterol nebulizer about four times a day. Pt denies cough, eye irritation/drainage, loss of taste or smell, red tongue, rash or skin lesions, abdominal pain, N/V/D, fevers, chills, recent travel, or known exposure to confirmed or suspected Covid-19 cases. Onset: Gradual Duration: Week(s): (2), Constant Location: Reports: Chest Quality: Reports: Pressure Severity: Moderate Improves with: Reports: None Worsens with: Reports: None Associated Symptoms: Reports: No Other Symptoms Chest Pain Score (Numeric/FACES): 8 - Related Data Allergies Allergy/AdvReac Type Severity Reaction Status Date / Time Penicillins Allergy Severe Airway Verified 11/26/18 08:29 Tightness nicotine Allergy Rash Verified 11/26/18 13:10 [email or web address] Allergy Other Verified 11/26/18 07:25 Home Meds: Home Meds Albuterol/Ipratropium [DuoNeb 3.0-0.5 MG/3 ML] 1 each INH QID PRN 07/30/16 [ History] oxyCODONE HCl/Acetaminophen [oxyCODONE-Acetaminophen 5-325] 1 tab PO QID [History] Gabapentin [Neurontin] 600 mg PO TID 08/14/18 [History] DULoxetine [Cymbalta] 60 mg PO DAILY 11/26/18 [History] Fluticasone/Salmeterol [Advair 250-50] 1 puff INH BID 11/26/18 [History] levoFLOXacin [Levaquin] 750 mg PO DAILY #7 tab 11/29/18 [Rx] predniSONE [Prednisone] 10 mg PO DAILY #4 tablet 11/29/18 [Rx] Past Medical History Cardiovascular History: Reports: CAD, High Cholesterol Respiratory History: Reports: COPD Gastrointestinal History: Reports: GERD, Hiatal Hernia, Irritable Bowel Syndrome Other Gastrointestinal History: ulcer Genitourinary History: Reports: None Other Genitourinary History: bladder prolapse WORKS MANAGER History: Reports: None Musculoskeletal History: Reports: Arthritis, Back Pain, Chronic, Connective Tissue Disease, Osteoarthritis, Other (See Below) (chronic pain syndrome) Neurological History: Reports: None Psychiatric History: Reports: Anxiety, Depression Endocrine/Metabolic History: Reports: Hypothyroidism - Past Surgical History HEENT Surgical History: Reports: Tonsillectomy Cardiovascular Surgical History: Reports: Coronary Artery Bypass GI Surgical History: Reports: None Social & Family History - Family History Family Medical History: Noncontributory - Tobacco Use Smoking Status *Q: Current Every Day Smoker Tobacco Use Within Last Twelve Months: Cigarettes Years of Tobacco use: 60 Packs/Tins Daily: 0.5 (previously 1 ppd x40+ yrs) Smoking Cessation Information Provided To Patient: Patient Refused Second Hand Smoke Exposure: No - Caffeine Use Caffeine Use: Reports: Coffee - Living Situation & Occupation Occupation: Retired ED ROS GENERAL - Review of Systems Review Of Systems: Comprehensive ROS is negative, except as noted in HPI. ED EXAM, GENERAL - Physical Exam Exam: See Below Exam Limited By: No Limitations General Appearance: Alert, WD/WN, No Apparent Distress Eye Exam: Bilateral Eye: Normal Inspection Nose: Normal Inspection, Normal Mucosa, No Blood Throat/Mouth: Normal Inspection, Normal Lips, Normal Teeth, Normal Gums, Normal Oropharynx, Normal Voice, No Airway Compromise Head: Atraumatic, Normocephalic Neck: Normal Inspection, Supple, Non-Tender, Full Range of Motion Respiratory/Chest: No Respiratory Distress, No Accessory Muscle Use, Chest Non- Tender, Decreased Breath Sounds, Wheezing. No: Rales, Rhonchi, Stridor Cardiovascular: Normal Peripheral Pulses, Regular Rate, Rhythm, No Edema GI/Abdominal: Normal Bowel Sounds, Soft, Non-Tender, No Organomegaly, No Distention, No Abnormal Bruit, No Mass Back Exam: Normal Inspection Extremities: Normal Inspection, Normal Range of Motion, Non-Tender, Normal Capillary Refill, No Pedal Edema Neurological: Alert, Oriented, CN II-XII Intact, Normal Cognition, No Motor/ Sensory Deficits Psychiatric: Normal Affect, Normal Mood Skin Exam: Warm, Dry, Intact, Normal Color, No Rash EKG INTERPRETATION EKG Date: 12/04/19 Time: 12:48 Rhythm: Other (SR) Rate (Beats/Min): 87 [place]: Normal P-Wave: Present QRS: Normal ST-T: Normal QT: Normal Comparison: No Change Course - Vital Signs Last Recorded V/S: Last Vital Signs Temp 98 F 12/04/19 12:53 Pulse 89 12/04/19 12:53 Resp 16 12/04/19 12:53 BP 133/55 L 12/04/19 12:53 Pulse Ox 94 L 12/04/19 12:53 - Orders/Labs/Meds Orders: Active Orders 24 hr Category Date Time Status EKG 12 Lead [EKG Documentation Completion] [RC] STAT Care 12/04/19 12:49 Active Peripheral IV Care [RC] . DIRECTED Care 12/04/19 12:55 Active Chest 1V Frontal [CR] Stat Exams 12/04/19 12:55 Taken Sodium Chloride 0.9% [Saline Flush] Med 12/04/19 12:55 Active 10 ml FLUSH ASDIRECTED PRN Peripheral IV Insertion Adult [OM.PC] Stat Oth 12/04/19 12:55 Ordered Medication Orders Sodium Chloride (Saline Flush) 10 ml FLUSH ASDIRECTED PRN PRN Reason: Keep Vein Open Labs: Laboratory Tests 12/04/19 12/04/19 Range/Units 12:45 12:45 WBC 8.2 (5.0-10.0) 10^3/uL RBC 4.08 L (4.2-5.4) 10^6/uL Hgb 12.2 (12.0-16.0) g/dL Hct 38.1 (37.0-47.0) % MCV 93.4 D (80-100) fL MCH 29.9 (27.0-34.0) pg MCHC 32.0 L (33.0-35.0) g/dL Plt Count 169 (150-450) 10^3/uL Neut % (Auto) 63.0 (42.2-75.2) % Lymph % (Auto) 24.8 (20.5-50.1) % Gregg % (Auto) 9.3 H (2-8) % Eos % (Auto) 2.7 (1.0-3.0) % Baso % (Auto) 0.2 (0.0-1.0) % Sodium 141 (136-145) mmol/L Potassium 3.9 (3.5-5.1) mmol/L Chloride 103 (98-107) mmol/L Carbon Dioxide 30 (21-32) mmol/L Anion Gap 11.9 (7-13) mEq/L BUN 11 (7-18) mg/dL Creatinine 1.01 (0.55-1.02) mg/dL Est Cr Clr Drug Dosing 37.08 mL/min Estimated GFR (MDRD) 52 BUN/Creatinine Ratio 10.9 (No establ ref range) Glucose 128 H (74-99) mg/dL Calcium 8.0 L (8.5-10.1) mg/dL Total Bilirubin 0.3 (0.2-1.0) mg/dL AST 11 L (15-37) U/L ALT 16 (14-59) U/L Alkaline Phosphatase 67 (46-116) U/L Troponin I < 0.017 (0.000-0.056) ng/mL B-Natriuretic Peptide 113 H (0-100) pg/ml Total Protein 6.3 L (6.4-8.2) g/dL Albumin 3.3 L (3.4-5.0) g/dL Globulin 3.0 Albumin/Globulin Ratio 1.10 Lipase 70 L (73-393) U/L Meds: Medications Generic Name Dose Route Start Last Admin Trade Name Freq PRN Reason Stop Dose Admin Sodium Chloride 10 ml 12/04/19 12:55 Saline Flush FLUSH ASDIRECTED PRN Keep Vein Open - Radiology Interpretation Free Text/Narrative:: Chest XR: COPD, no focal infiltrates, see Rad. report. - Re-Assessments/Exams Free Text/Narrative Re-Assessment/Exam: 12/04/19 14:02 Walking O2 study finds pt maintains 94-96% oxygen saturations. Departure - Departure Time of Disposition: 14:02 Disposition: Home, Self-Care 01 Condition: Good Clinical Impression: Acute exacerbation of chronic obstructive pulmonary disease (COPD), Atypical chest pain Instructions: Nonspecific Chest Pain, Adult, [id number], Chronic Obstructive Pulmonary Disease Exacerbation, [id number] Forms: ED Department Discharge Additional Instructions: Rx: Prednisone 20mg Continue your breathing treatments as prescribed. Follow up in clinic with your doctor on or Wednesday (December 06 or ) for recheck. Ask your doctor about a slow prednisone taper. Return to ER if worse at any time. Sepsis Event Note - Focused Exam Vital Signs: Vital Signs Temp Pulse Resp BP Pulse Ox 12/04/19 12:53 98 F 89 16 133/55 L 94 L Date Exam was Performed: 12/04/19 Time Exam was Performed: 14:01 - My Orders Last 24 Hours: My Active Orders 12/04/19 12:49 EKG 12 Lead [EKG Documentation Completion] [RC] STAT 12/04/19 12:55 Peripheral IV Care [RC] . DIRECTED Chest 1V Frontal [CR] Stat Sodium Chloride 0.9% [Saline Flush] 10 ml FLUSH ASDIRECTED PRN Peripheral IV Insertion Adult [OM.PC] Stat - Assessment/Plan Last 24 Hours: My Active Orders 12/04/19 12:49 EKG 12 Lead [EKG Documentation Completion] [RC] STAT 12/04/19 12:55 Peripheral IV Care [RC] . DIRECTED Chest 1V Frontal [CR] Stat Sodium Chloride 0.9% [Saline Flush] 10 ml FLUSH ASDIRECTED PRN Peripheral IV Insertion Adult [OM.PC] Stat
[2019-12-04] MEDS ORDERED: Sodium Chloride 0.9% 10 ML Syringe FLUSH PRN (12:55)
[2019-12-04 13:14] LABS: ANION GAP 11.9 mEq/L (7-13); CHLORIDE,CL 103 mmol/L (98-107); SODIUM,NA 141 mmol/L (136-145)
--- NOTE | 2019-12-05 08:30 | CR ---
EXAMINATION: Chest 1V Frontal SEX: Female AGE: 84 years CLINICAL HISTORY: 84-year-old female with CHEST PAIN. INTERPRETATION: (Comparison CXR November 21) Impression: No acute cardiopulmonary abnormality. 1. Sternotomy wires and external repairer hairspring leads. Gown snaps. 2. Normal cardiac silhouette without pulmonary vascular congestion, cephalization of flow, alveolar edema or dependent new pleural fluid accumulation since November 2018. 3. Tiny suprahilar granuloma, on the right, unchanged. Chronic mild blunting of the costophrenic sulci. 4. No new lung mass, hilar lymphadenopathy or focal lobar consolidation i.e. no atelectasis or infiltrate.
== END 2019-12-04 14:20 | disposition home or self-care (01) ==
LOC: DL.ED 12:29
DX: J44.1 Chronic obstructive pulmonary disease with (acute) exacerbation (principal); I25.10 Atherosclerotic heart disease of native coronary artery without angina pectoris; F41.9 Anxiety disorder, unspecified; F32.9 Major depressive disorder, single episode, unspecified; Z79.899 Other long term (current) drug therapy; Z88.0 Allergy status to penicillin; Z91.048 Other nonmedicinal substance allergy status
CPT/HCPCS: 36415; 71045; 80053; 83690; 83880; 84484; 85025; 93005; 99285-25

== ENCOUNTER 2022-05-25 14:10 | Emergency (ER) | payer MEDICARE, OTHER ==
[2022-05-25 15:54] LABS: CORONAVIRUS COVID-19 NAA NEGATIVE (NEGATIVE)
[2022-05-25 16:48] LABS: ANION GAP 13.2 mEq/L (7-13)
[2022-05-25] MEDS ORDERED: Furosemide 40 MG/4 ML VIAL IVPUSH ONE (17:12)
[2022-05-25] MEDS ORDERED: Aspirin 81 MG Tab.Chew PO ONE (20:27)
[2022-05-25] MEDS ORDERED: Ciprofloxacin 500 MG Tab PO ONE (21:20)
== END 2022-05-25 22:05 ==
LOC: DL.ED 14:10
DX: I21.4 Non-ST elevation (NSTEMI) myocardial infarction (principal); D64.9 Anemia, unspecified; R94.31 Abnormal electrocardiogram [ECG] [EKG]; I25.10 Atherosclerotic heart disease of native coronary artery without angina pectoris; J44.9 Chronic obstructive pulmonary disease, unspecified; F17.210 Nicotine dependence, cigarettes, uncomplicated; Z88.0 Allergy status to penicillin; Z91.048 Other nonmedicinal substance allergy status; Z79.899 Other long term (current) drug therapy; Z20.822 Contact with and (suspected) exposure to COVID-19
CPT/HCPCS: 0240U; 36415; 71046; 80053; 81001; 82272; 82728; 83540; 83605; 83880; 84484; 85025; 87086; 87088; 87186; 93005; 96374; 99285; A9270; J1940

== ENCOUNTER 2022-06-10 10:39 | Observation (INO) | payer MEDICARE, OTHER ==
[2022-06-10] MEDS ORDERED: Polyethylene Glycol 3350 Powder 17 GM Packet PO PRN (12:04)
[2022-06-10] MEDS ORDERED: HYDROmorphone 0.5 MG/0.5 ML Syringe IVPUSH PRN (12:04)
[2022-06-10] MEDS ORDERED: Acetaminophen/HYDROcodone 325-5 MG Tab PO PRN (12:04)
[2022-06-10] MEDS ORDERED: Sodium Chloride 0.9% 10 ML Syringe FLUSH PRN (12:04)
[2022-06-10] MEDS ORDERED: Albuterol/Ipratropium 3.0-0.5 MG/3 ML Neb Soln NEB PRN (12:04)
[2022-06-10] MEDS ORDERED: Magnesium Hydroxide 400 MG/5 ML Susp 30 ML Cup PO PRN (12:04)
[2022-06-10] MEDS ORDERED: Ondansetron 4 MG/2 ML SDV IVPUSH PRN (12:04)
[2022-06-10] MEDS ORDERED: Bisacodyl 5 MG Tab PO PRN (12:04)
[2022-06-10] MEDS ORDERED: Acetaminophen 325 MG Tab PO PRN (12:04)
[2022-06-10] MEDS ORDERED: Nitroglycerin 0.4 MG Tab.SL SL PRN (12:18)
[2022-06-10] MEDS ORDERED: Albuterol/Ipratropium 3.0-0.5 MG/3 ML Neb Soln INH PRN (12:18)
[2022-06-10] MEDS ORDERED: Metoprolol Tartrate 5 MG/5 ML SDV IVPUSH PRN (12:56)
[2022-06-10] MEDS ORDERED: hydrALAZINE 20 MG/ML SDV IVPUSH PRN (12:56)
[2022-06-10] MEDS ORDERED: guaiFENesin/Dextromethorphan 100-10 MG/5 ML Soln 5 ML Cup PO PRN (12:57)
[2022-06-10] MEDS ORDERED: guaiFENesin 600 MG Tab.ER PO ONE (12:57)
[2022-06-10] MEDS ORDERED: Sodium Chloride 0.9% 1,000 ML IV SCH (13:00)
[2022-06-10] MEDS: Nicotine 21 MG/24 Hr Patch TRDERM SCH (14:53)
[2022-06-10] MEDS: Budesonide 0.5 MG/2 ML Neb Susp INH SCH (18:28)
[2022-06-10] MEDS ORDERED: FLUTICASONE INH SCH (21:00)
[2022-06-10] MEDS ORDERED: LORazepam 0.5 MG Tab PO PRN (21:00)
[2022-06-10] MEDS ORDERED: Check Patch TRDERM SCH (21:00)
[2022-06-10] MEDS ORDERED: SALMETEROL INH SCH (21:00)
[2022-06-10] MEDS: oxyCODONE ER 20 MG TAB.ER PO SCH (21:57)
[2022-06-10] MEDS: guaiFENesin 600 MG Tab.ER PO SCH (21:57)
[2022-06-11] MEDS: Sodium Chloride 0.9% 10 ML Syringe FLUSH SCH ×2 (03:30→09:01)
[2022-06-11 07:18] LABS: ANION GAP 8.1 mEq/L (7-13)
[2022-06-11] MEDS: guaiFENesin 600 MG Tab.ER PO SCH (08:56)
[2022-06-11] MEDS: oxyCODONE ER 20 MG TAB.ER PO SCH (08:56)
[2022-06-11] MEDS: Nicotine 21 MG/24 Hr Patch TRDERM SCH (09:00)
[2022-06-11] MEDS ORDERED: Multivitamin Tab PO SCH (09:00)
[2022-06-11] MEDS ORDERED: Ergocalciferol (Vitamin D2) 1.25 MG Cap PO SCH (09:00)
[2022-06-11] MEDS: Budesonide 0.5 MG/2 ML Neb Susp INH SCH (09:00)
[2022-06-11] MEDS ORDERED: Aspirin 81 MG Tab.EC PO SCH (09:00)
[2022-06-11] MEDS ORDERED: Acetaminophen/oxyCODONE 325-5 MG Tab PO PRN (11:01)
[2022-06-11] MEDS ORDERED: Gabapentin 300 MG Cap PO PRN (11:01)
[2022-06-11] MEDS ORDERED: Fluconazole 100 MG Tab PO ONE (11:12)
[2022-06-11] MEDS ORDERED: Albuterol 6.7 GM Inhaler INH SCH (13:00)
[2022-06-11] MEDS ORDERED: Furosemide 40 MG Tab PO SCH (14:00)
[2022-06-12] MEDS ORDERED: DULoxetine 30 MG Cap PO SCH (09:00)
[2022-06-12] MEDS ORDERED: Lisinopril 10 MG Tab PO SCH (09:00)
== END 2022-06-11 13:00 | disposition home or self-care (01) ==
LOC: DL.MS 11:00
PROVIDERS: ADMIT Internal Medicine; ATTEND Internal Medicine
DX: R41.0 Disorientation, unspecified (principal); H54.7 Unspecified visual loss; I10 Essential (primary) hypertension; N39.0 Urinary tract infection, site not specified; E78.00 Pure hypercholesterolemia, unspecified; I25.10 Atherosclerotic heart disease of native coronary artery without angina pectoris; J44.9 Chronic obstructive pulmonary disease, unspecified; K58.9 Irritable bowel syndrome, unspecified; K21.9 Gastro-esophageal reflux disease without esophagitis; F32.A Depression, unspecified; F41.9 Anxiety disorder, unspecified; E03.9 Hypothyroidism, unspecified; M19.90 Unspecified osteoarthritis, unspecified site; Z79.899 Other long term (current) drug therapy; Z87.891 Personal history of nicotine dependence; Z79.82 Long term (current) use of aspirin; Z88.0 Allergy status to penicillin; Z88.4 Allergy status to anesthetic agent; Z88.8 Allergy status to other drugs, medicaments and biological substances; Z98.890 Other specified postprocedural states; Z90.710 Acquired absence of both cervix and uterus
CPT/HCPCS: 36415; 71045; 71250; 80053; 81001; 82306; 83735; 84439; 84443; 85025; 94640; 99232; 99238; A9270-GY; G0378; G0379; J7030

== ENCOUNTER 2023-05-05 14:37 | Inpatient (IN) | payer MEDICARE, OTHER ==
[2023-05-05] MEDS ORDERED: Sodium Chloride 0.9% 10 ML Syringe FLUSH PRN (14:41)
[2023-05-05] MEDS ORDERED: Acetaminophen 500 MG Tab PO ONE (14:43)
[2023-05-05] MEDS ORDERED: Ondansetron 4 MG/2 ML SDV IV ONE (14:44)
[2023-05-05] MEDS ORDERED: Sodium Chloride 0.9% 1,000 ML IV SCH (14:45)
[2023-05-05 15:19] LABS: HEMATOCRIT 39.2 % (37.0-47.0); HEMOGLOBIN 13.7 g/dL (12.0-16.0); MEAN CORPUSCULAR HEMOGLOBIN 32.5 pg (27.0-34.0); MEAN CORPUSCULAR HGB CONC 34.9 g/dL (33.0-35.0); MEAN CORPUSCULAR VOLUME 92.9 fL (80-100); PLATELET COUNT,PLT 303 10^3/uL (150-450); RED BLOOD CELL COUNT 4.22 10^6/uL (4.2-5.4); WHITE BLOOD CELL COUNT,WBC 10.6 10^3/uL (5.0-10.0)
[2023-05-05 15:24] LABS: BASOPHILS PERCENT AUTO 0.3 % (0.0-1.0); EOSINOPHILS PERCENT AUTO 1.2 % (1.0-3.0); LYMPHOCYTES PERCENT AUTO 17.4 % (20.5-50.1); MONOCYTES PERCENT AUTO 14.7 % (2-8); NEUTROPHILS PERCENT AUTO 66.4 % (42.2-75.2)
[2023-05-05 15:25] LABS: CORONAVIRUS COVID-19 NAA NEGATIVE (NEGATIVE); INFLUENZA A NAA NEGATIVE (NEGATIVE); INFLUENZA B NAA NEGATIVE (NEGATIVE); RESPIRATORY SYNCYTIAL VIR NAA NEGATIVE (NEGATIVE)
[2023-05-05 15:40] LABS: ALANINE AMINOTRANSFERASE,ALT 24 U/L (14-59); ALBUMIN 2.7 g/dL (3.4-5.0); ALKALINE PHOSPHATASE 95 U/L (46-116); ANION GAP 13.5 mEq/L (7-13); ASPARTATE AMNIOTRANSFERASE,AST 22 U/L (15-37); BILIRUBIN TOTAL 0.3 mg/dL (0.2-1.0); BLOOD UREA NITROGEN,BUN 48 mg/dL (7-18); BUN/CREATININE RATIO 42.5 (No establ ref range); CALCIUM 9.1 mg/dL (8.5-10.1); CARBON DIOXIDE,CO2 27 mmol/L (21-32); CHLORIDE,CL 96 mmol/L (98-107); CREATININE 1.13 mg/dL (0.55-1.02); GLUCOSE RANDOM 179 mg/dL (70-99); POTASSIUM,K 3.5 mmol/L (3.5-5.1); PROTEIN TOTAL,TP 7.3 g/dL (6.4-8.2); SODIUM,NA 133 mmol/L (136-145)
[2023-05-05 15:41] LABS: LACTIC ACID 1.4 mmol/L (0.4-2.0)
[2023-05-05 15:42] LABS: B-TYPE NATRIURETIC PEPTIDE,BNP 363 pg/ml (0-100)
[2023-05-05 15:44] LABS: A/G RATIO 0.59; ESTIMATED GFR 48 mL/min (>=60)
[2023-05-05 16:20] LABS: APPEARANCE,URINE SLIGHTLY CLOUDY (CLEAR); BILIRUBIN,URINE NEGATIVE (NEGATIVE); COLOR,URINE YELLOW (YELLOW); GLUCOSE,URINE NEGATIVE (NEGATIVE); KETONES,URINE NEGATIVE (NEGATIVE); LEUKOCYTE ESTERASE,URINE SMALL (NEGATIVE); NITRITE,URINE POSITIVE (NEGATIVE); OCCULT BLOOD,URINE SMALL (NEGATIVE); PH,URINE 5.5 (5.0-9.0); PROTEIN,URINE 30 (NEGATIVE); UROBILINOGEN,URINE 0.2 mg/dL (0.2-1.0)
[2023-05-05 16:23] LABS: LYMPHOCYTES PERCENT MAN 17 % (20-50); MONOCYTES PERCENT MAN 9 % (2-8); SEG NEUTROPHILS PERCENT MAN 74 % (42-75)
[2023-05-05 16:29] LABS: WBC,URINE 50-75 /HPF (0-5/HPF)
[2023-05-05 16:30] LABS: BACTERIA,URINE MANY /HPF (0-FEW/HPF); EPITHELIAL CELLS,URINE RARE /HPF (NOT SEEN); HYALINE CASTS,URINE FEW; MUCUS,URINE FEW /LPF (NOT SEEN)
[2023-05-05] MEDS ORDERED: diphenhydrAMINE 50 MG/ML SDV IVPUSH ONE (16:34)
[2023-05-05] MEDS ORDERED: Dexamethasone 4 MG/ML SDV IVPUSH ONE (16:35)
[2023-05-05] MEDS ORDERED: cefTRIAXone 1 GM Vial IVPUSH ONE (16:41)
[2023-05-05] MEDS ORDERED: Promethazine 25 MG/ML SDV IM PRN (18:34)
[2023-05-05] MEDS ORDERED: Promethazine 25 MG Tab PO PRN (18:34)
[2023-05-05] MEDS ORDERED: Acetaminophen 325 MG Tab PO PRN (18:34)
[2023-05-05] MEDS ORDERED: Acetaminophen/oxyCODONE 325-5 MG Tab PO PRN (18:51)
[2023-05-05] MEDS ORDERED: LORazepam 0.5 MG Tab PO PRN (18:51)
[2023-05-05] MEDS ORDERED: Albuterol 6.7 GM Inhaler INH PRN (18:51)
[2023-05-05] MEDS: Levofloxacin/Dextrose 5%-Water 250 MG in Premix Bag 1 BAG IV SCH (20:11)
[2023-05-06] MEDS: Albuterol 0.083% 2.5 MG/3 ML Neb Soln NEB PRN ×4 (05:18→17:01)
[2023-05-06 06:55] LABS: EOSINOPHILS PERCENT AUTO 0.1 % (1.0-3.0); HEMATOCRIT 34.5 % (37.0-47.0); LYMPHOCYTES PERCENT AUTO 14.7 % (20.5-50.1); MEAN CORPUSCULAR HEMOGLOBIN 29.6 pg (27.0-34.0); MEAN CORPUSCULAR HGB CONC 31.9 g/dL (33.0-35.0); MONOCYTES PERCENT AUTO 4.6 % (2-8); NEUTROPHILS PERCENT AUTO 80.6 % (42.2-75.2); PLATELET COUNT,PLT 265 10^3/uL (150-450); RED BLOOD CELL COUNT 3.71 10^6/uL (4.2-5.4); WHITE BLOOD CELL COUNT,WBC 7.6 10^3/uL (5.0-10.0)
[2023-05-06 07:42] LABS: ANION GAP 14.3 mEq/L (7-13); CALCIUM 8.8 mg/dL (8.5-10.1); CREATININE 0.96 mg/dL (0.55-1.02); EST CRCL DRUG DOSING (CG) 32.33 mL/min; POTASSIUM,K 4.3 mmol/L (3.5-5.1)
[2023-05-06] MEDS: Lisinopril 10 MG Tab PO SCH (08:45)
[2023-05-06] MEDS: Ferrous Sulfate 325 MG Tab PO SCH (08:46)
[2023-05-06] MEDS: Multivitamin Tab PO SCH (08:46)
[2023-05-06] MEDS: DULoxetine 30 MG Cap PO SCH (08:47)
[2023-05-06] MEDS: Enoxaparin 30 MG/0.3 ML Syringe SUBCUT SCH (08:48)
[2023-05-06] MEDS: Aspirin 81 MG Tab.EC PO SCH (08:48)
[2023-05-06] MEDS: Levofloxacin/Dextrose 5%-Water 250 MG in Premix Bag 1 BAG IV SCH (19:44)
[2023-05-06] MEDS ORDERED: diphenhydrAMINE 50 MG/ML SDV IVPUSH ONE (20:35)
[2023-05-07] MEDS: Albuterol 0.083% 2.5 MG/3 ML Neb Soln NEB PRN ×3 (05:24→11:39)
[2023-05-07 06:39] LABS: BASOPHILS PERCENT AUTO 0.1 % (0.0-1.0); EOSINOPHILS PERCENT AUTO 0.5 % (1.0-3.0); HEMOGLOBIN 10.9 g/dL (12.0-16.0); LYMPHOCYTES PERCENT AUTO 24.3 % (20.5-50.1); MEAN CORPUSCULAR HEMOGLOBIN 29.5 pg (27.0-34.0); MEAN CORPUSCULAR HGB CONC 32.1 g/dL (33.0-35.0); MEAN CORPUSCULAR VOLUME 92.1 fL (80-100); MONOCYTES PERCENT AUTO 10.5 % (2-8); NEUTROPHILS PERCENT AUTO 64.6 % (42.2-75.2); PLATELET COUNT,PLT 340 10^3/uL (150-450); RED BLOOD CELL COUNT 3.69 10^6/uL (4.2-5.4); WHITE BLOOD CELL COUNT,WBC 12.7 10^3/uL (5.0-10.0)
[2023-05-07 06:57] LABS: ANION GAP 11.8 mEq/L (7-13); CALCIUM 8.9 mg/dL (8.5-10.1); CREATININE 0.96 mg/dL (0.55-1.02); EST CRCL DRUG DOSING (CG) 32.33 mL/min; POTASSIUM,K 3.8 mmol/L (3.5-5.1)
[2023-05-07] MEDS: DULoxetine 30 MG Cap PO SCH (09:09)
[2023-05-07] MEDS: Ferrous Sulfate 325 MG Tab PO SCH (09:09)
[2023-05-07] MEDS: Aspirin 81 MG Tab.EC PO SCH (09:09)
[2023-05-07] MEDS: Multivitamin Tab PO SCH (09:09)
[2023-05-07] MEDS: Enoxaparin 30 MG/0.3 ML Syringe SUBCUT SCH (09:09)
[2023-05-07] MEDS: Lisinopril 10 MG Tab PO SCH (09:09)
[2023-05-07] MEDS: Budesonide 0.5 MG/2 ML Neb **OWN MED NEB SCH (19:05)
[2023-05-07] MEDS ORDERED: Levofloxacin 250 MG Tab PO SCH (20:00)
[2023-05-08] MEDS: Albuterol 0.083% 2.5 MG/3 ML Neb Soln NEB PRN ×2 (05:33→09:49)
[2023-05-08] MEDS: Budesonide 0.5 MG/2 ML Neb **OWN MED NEB SCH (05:34)
[2023-05-08] MEDS: Lisinopril 10 MG Tab PO SCH (09:10)
[2023-05-08] MEDS: Ferrous Sulfate 325 MG Tab PO SCH (09:10)
[2023-05-08] MEDS: Aspirin 81 MG Tab.EC PO SCH (09:10)
[2023-05-08] MEDS: Multivitamin Tab PO SCH (09:10)
[2023-05-08] MEDS: DULoxetine 30 MG Cap PO SCH (09:10)
[2023-05-08] MEDS: Enoxaparin 30 MG/0.3 ML Syringe SUBCUT SCH (09:11)
[2023-05-08] MEDS ORDERED: FLU (Fluad Quad) 2023-24(65UP)/MF59C/PF 60 MCG/0.5 ML Syringe IM ONE (11:00)
== END 2023-05-08 11:00 | disposition home health service (06) | DRG 690 ==
LOC: DL.ED 14:37 → DL.MS 18:00
PROVIDERS: ADMIT Internal Medicine; ATTEND Internal Medicine
DX: N39.0 Urinary tract infection, site not specified (principal); E87.1 Hypo-osmolality and hyponatremia; R35.0 Frequency of micturition; E86.0 Dehydration; Z20.822 Contact with and (suspected) exposure to COVID-19; Z66 Do not resuscitate; J44.9 Chronic obstructive pulmonary disease, unspecified; I10 Essential (primary) hypertension; I25.10 Atherosclerotic heart disease of native coronary artery without angina pectoris; M19.90 Unspecified osteoarthritis, unspecified site; F41.9 Anxiety disorder, unspecified; F32.A Depression, unspecified; E03.9 Hypothyroidism, unspecified; T50.905A Adverse effect of unspecified drugs, medicaments and biological substances, initial encounter; E87.6 Hypokalemia; E78.00 Pure hypercholesterolemia, unspecified; E87.8 Other disorders of electrolyte and fluid balance, not elsewhere classified; B96.20 Unspecified Escherichia coli [E. coli] as the cause of diseases classified elsewhere; I25.2 Old myocardial infarction; Z88.0 Allergy status to penicillin; Z11.52 Encounter for screening for COVID-19; Z88.8 Allergy status to other drugs, medicaments and biological substances; K21.9 Gastro-esophageal reflux disease without esophagitis; K52.9 Noninfective gastroenteritis and colitis, unspecified; Z79.82 Long term (current) use of aspirin; Z98.49 Cataract extraction status, unspecified eye; Z90.89 Acquired absence of other organs; Z90.710 Acquired absence of both cervix and uterus; Z90.79 Acquired absence of other genital organ(s); Z90.722 Acquired absence of ovaries, bilateral; Z98.890 Other specified postprocedural states; Z79.899 Other long term (current) drug therapy; Z95.1 Presence of aortocoronary bypass graft; Z87.891 Personal history of nicotine dependence
CPT/HCPCS: 0241U; 36415; 71045; 80048; 80053; 81001; 83605; 83880; 84145; 84484; 85025; 87040; 87086; 87088; 87186; 90694; 93005; 93010; 94010; 94060; 94640; 94667; 94668; 94760; 96361; 96374; 96375; 97161-GP; 97165-GO; 97530-GP; 99284; 99285-25; A9270-GY; G0008; J0696; J1100; J1200; J1650; J1956; J2405; J3490; J7030; J7613-GY

== ENCOUNTER 2024-04-27 11:08 | Emergency (ER) | payer MEDICARE, OTHER ==
[2024-04-27] MEDS ORDERED: Sodium Chloride 0.9% 10 ML Syringe FLUSH PRN (11:43)
[2024-04-27] MEDS: Sodium Chloride 0.9% 500 ML IV ONE ×2 (12:01→13:05)
[2024-04-27 12:04] LABS: BASOPHILS PERCENT AUTO 0.4 % (0.0-1.0); EOSINOPHILS PERCENT AUTO 1.2 % (1.0-3.0); HEMATOCRIT 44.9 % (37.0-47.0); HEMOGLOBIN 14.3 g/dL (12.0-16.0); LYMPHOCYTES PERCENT AUTO 26.9 % (20.5-50.1); MEAN CORPUSCULAR HEMOGLOBIN 29.5 pg (27.0-34.0); MEAN CORPUSCULAR HGB CONC 31.8 g/dL (33.0-35.0); MEAN CORPUSCULAR VOLUME 92.6 fL (80-100); MONOCYTES PERCENT AUTO 9.7 % (2-8); NEUTROPHILS PERCENT AUTO 61.8 % (42.2-75.2); PLATELET COUNT,PLT 283 10^3/uL (150-450); RED BLOOD CELL COUNT 4.85 10^6/uL (4.2-5.4); WHITE BLOOD CELL COUNT,WBC 12.2 10^3/uL (5.0-10.0)
[2024-04-27 12:19] LABS: B-TYPE NATRIURETIC PEPTIDE,BNP 112 pg/ml (0-100)
[2024-04-27 12:27] LABS: LACTIC ACID 1.3 mmol/L (0.4-2.0)
[2024-04-27 12:30] LABS: PTT,PARTIAL THROMBOPLSTIN TIME 22.5 SEC (22.0-34.0)
[2024-04-27 12:32] LABS: ALANINE AMINOTRANSFERASE,ALT 16 U/L (14-59); ALKALINE PHOSPHATASE 88 U/L (46-116); ANION GAP 9.7 mEq/L (7-13); ASPARTATE AMNIOTRANSFERASE,AST 15 U/L (15-37); BILIRUBIN TOTAL 0.5 mg/dL (0.2-1.0); BLOOD UREA NITROGEN,BUN 20 mg/dL (7-18); BUN/CREATININE RATIO 20.8 (No establ ref range); CALCIUM 9.2 mg/dL (8.5-10.1); CARBON DIOXIDE,CO2 32 mmol/L (21-32); CHLORIDE,CL 101 mmol/L (98-107); CREATININE 0.96 mg/dL (0.55-1.02); EST CRCL DRUG DOSING (CG) 34.34 mL/min; GLUCOSE RANDOM 121 mg/dL (70-99); MAGNESIUM 1.9 mg/dL (1.8-2.4); POTASSIUM,K 3.7 mmol/L (3.5-5.1); PROTEIN TOTAL,TP 6.7 g/dL (6.4-8.2); SODIUM,NA 139 mmol/L (136-145); TSH ULTRASENSITIVE 0.78 uIU/mL (0.36-3.74)
[2024-04-27 12:34] LABS: A/G RATIO 0.81; ESTIMATED GFR 58 mL/min (>=60); ETHANOL BLOOD MEDICAL < 3 mg/dL (0)
[2024-04-27 12:49] LABS: APPEARANCE,URINE CLEAR (CLEAR); BILIRUBIN,URINE NEGATIVE (NEGATIVE); COLOR,URINE YELLOW (YELLOW); GLUCOSE,URINE NEGATIVE (NEGATIVE); KETONES,URINE TRACE (NEGATIVE); LEUKOCYTE ESTERASE,URINE NEGATIVE (NEGATIVE); NITRITE,URINE NEGATIVE (NEGATIVE); OCCULT BLOOD,URINE TRACE-INTACT (NEGATIVE); PH,URINE 5.5 (5.0-9.0); PROTEIN,URINE NEGATIVE (NEGATIVE)
[2024-04-27 12:57] LABS: WBC,URINE 0-5 /HPF (0-5/HPF)
[2024-04-27 12:58] LABS: BACTERIA,URINE OCCASIONAL /HPF (0-FEW/HPF); EPITHELIAL CELLS,URINE MODERATE /HPF (NOT SEEN); MUCUS,URINE OCCASIONAL /LPF (NOT SEEN); RBC,URINE 0-5 /HPF (0-5)
== END 2024-04-27 14:56 | disposition home or self-care (01) ==
LOC: DL.ED 11:08
DX: E86.0 Dehydration (principal); I10 Essential (primary) hypertension; I25.10 Atherosclerotic heart disease of native coronary artery without angina pectoris; J44.9 Chronic obstructive pulmonary disease, unspecified; Z95.1 Presence of aortocoronary bypass graft; Z90.710 Acquired absence of both cervix and uterus; Z87.891 Personal history of nicotine dependence; Z79.899 Other long term (current) drug therapy; Z79.82 Long term (current) use of aspirin; Z88.0 Allergy status to penicillin; Z88.8 Allergy status to other drugs, medicaments and biological substances
CPT/HCPCS: 71046; 80053; 80307; 81001; 83605; 83735; 83880; 84145; 84443; 84484; 85025; 85610; 85730; 87428-QW; 96360; 99283; 99285-25; J7030

== ENCOUNTER 2024-05-10 00:59 | Emergency (ER) | payer MEDICARE, OTHER ==
[2024-05-10] MEDS ORDERED: Sodium Chloride 0.9% 10 ML Syringe FLUSH PRN (01:26)
[2024-05-10 01:34] LABS: BASOPHILS PERCENT AUTO 0.3 % (0.0-1.0); EOSINOPHILS PERCENT AUTO 2.8 % (1.0-3.0); HEMATOCRIT 42.7 % (37.0-47.0); HEMOGLOBIN 13.4 g/dL (12.0-16.0); LYMPHOCYTES PERCENT AUTO 43.9 % (20.5-50.1); MEAN CORPUSCULAR HEMOGLOBIN 29.3 pg (27.0-34.0); MEAN CORPUSCULAR HGB CONC 31.4 g/dL (33.0-35.0); MEAN CORPUSCULAR VOLUME 93.4 fL (80-100); MONOCYTES PERCENT AUTO 8.6 % (2-8); NEUTROPHILS PERCENT AUTO 44.4 % (42.2-75.2); PLATELET COUNT,PLT 188 10^3/uL (150-450); RED BLOOD CELL COUNT 4.57 10^6/uL (4.2-5.4); WHITE BLOOD CELL COUNT,WBC 6.9 10^3/uL (5.0-10.0)
[2024-05-10 01:53] LABS: B-TYPE NATRIURETIC PEPTIDE,BNP 127 pg/ml (0-100)
[2024-05-10 01:55] LABS: ALANINE AMINOTRANSFERASE,ALT 14 U/L (14-59); ALKALINE PHOSPHATASE 84 U/L (46-116); ANION GAP 9.3 mEq/L (7-13); ASPARTATE AMNIOTRANSFERASE,AST 10 U/L (15-37); BILIRUBIN TOTAL 0.3 mg/dL (0.2-1.0); BLOOD UREA NITROGEN,BUN 30 mg/dL (7-18); BUN/CREATININE RATIO 32.6 (No establ ref range); CALCIUM 9.1 mg/dL (8.5-10.1); CARBON DIOXIDE,CO2 30 mmol/L (21-32); CHLORIDE,CL 102 mmol/L (98-107); CREATININE 0.92 mg/dL (0.55-1.02); GLUCOSE RANDOM 103 mg/dL (70-99); MAGNESIUM 1.7 mg/dL (1.8-2.4); POTASSIUM,K 4.3 mmol/L (3.5-5.1); PROTEIN TOTAL,TP 6.8 g/dL (6.4-8.2); SODIUM,NA 137 mmol/L (136-145)
[2024-05-10 01:56] LABS: LACTIC ACID 0.9 mmol/L (0.4-2.0)
[2024-05-10 01:57] LABS: A/G RATIO 0.79; C-REACTIVE PROTEIN < 0.50 ng/dL (<=0.50); ESTIMATED GFR 61 mL/min (>=60)
[2024-05-10] MEDS: Albuterol/Ipratropium 3.0-0.5 MG/3 ML Neb Soln NEB ONE (02:09)
[2024-05-10] MEDS: Sodium Chloride 0.9% 500 ML IV SCH (02:59)
== END 2024-05-10 04:30 | disposition home or self-care (01) ==
LOC: DL.ED 00:59
DX: S09.90XA Unspecified injury of head, initial encounter (principal); I95.1 Orthostatic hypotension; R94.31 Abnormal electrocardiogram [ECG] [EKG]; I25.10 Atherosclerotic heart disease of native coronary artery without angina pectoris; I10 Essential (primary) hypertension; J44.9 Chronic obstructive pulmonary disease, unspecified; E03.9 Hypothyroidism, unspecified; Z95.5 Presence of coronary angioplasty implant and graft; Z90.710 Acquired absence of both cervix and uterus; Z88.0 Allergy status to penicillin; Z88.8 Allergy status to other drugs, medicaments and biological substances; Z79.51 Long term (current) use of inhaled steroids; Z79.82 Long term (current) use of aspirin; Z79.899 Other long term (current) drug therapy; W19.XXXA Unspecified fall, initial encounter; Y92.019 Unspecified place in single-family (private) house as the place of occurrence of the external cause
CPT/HCPCS: 36415; 70450; 71045; 72125; 80053; 83605; 83735; 83880; 84484; 85025; 86140; 93005; 96365; 99285; J3475; J7030; J7620-GY

== ENCOUNTER 2024-07-18 13:10 | Emergency (ER) | payer MEDICARE, OTHER | END 2024-07-18 14:08 | disposition home or self-care (01) | LOC: DL.ED 13:10 | DX: S59.901A Unspecified injury of right elbow, initial encounter (principal); I10 Essential (primary) hypertension; E78.00 Pure hypercholesterolemia, unspecified; I25.10 Atherosclerotic heart disease of native coronary artery without angina pectoris; J44.9 Chronic obstructive pulmonary disease, unspecified; K21.9 Gastro-esophageal reflux disease without esophagitis; E03.9 Hypothyroidism, unspecified; Z95.1 Presence of aortocoronary bypass graft; Z88.0 Allergy status to penicillin; Z88.5 Allergy status to narcotic agent; Z88.8 Allergy status to other drugs, medicaments and biological substances; Z79.899 Other long term (current) drug therapy; Z79.82 Long term (current) use of aspirin; Z90.710 Acquired absence of both cervix and uterus; W01.0XXA Fall on same level from slipping, tripping and stumbling without subsequent striking against object, initial encounter; Y93.89 Activity, other specified | CPT/HCPCS: 73080-RT; 73100-RT; 99284 ==

== ENCOUNTER 2024-10-22 22:09 | Emergency (ER) | payer MEDICARE, OTHER ==
[2024-10-23] MEDS: Albuterol/Ipratropium 3.0-0.5 MG/3 ML Neb Soln NEB ONE (00:51)
[2024-10-23] MEDS: Budesonide 0.5 MG/2 ML Neb Susp NEB ONE (00:51)
== END 2024-10-23 01:46 | disposition home or self-care (01) ==
LOC: DL.ED 22:09
DX: J44.1 Chronic obstructive pulmonary disease with (acute) exacerbation (principal); R07.89 Other chest pain; I10 Essential (primary) hypertension; I25.10 Atherosclerotic heart disease of native coronary artery without angina pectoris; E03.9 Hypothyroidism, unspecified; M19.90 Unspecified osteoarthritis, unspecified site; Z88.8 Allergy status to other drugs, medicaments and biological substances; Z88.0 Allergy status to penicillin; Z79.899 Other long term (current) drug therapy; Z79.891 Long term (current) use of opiate analgesic; Z79.82 Long term (current) use of aspirin; Z90.710 Acquired absence of both cervix and uterus; Z87.891 Personal history of nicotine dependence; W19.XXXA Unspecified fall, initial encounter
CPT/HCPCS: 71101; 94640; 99284; 99285; A9270; J3490

== ENCOUNTER 2025-05-15 00:05 | Emergency (ER) | payer MEDICARE, OTHER ==
[2025-05-15] MEDS ORDERED: Sodium Chloride 0.9% 10 ML Syringe FLUSH PRN (00:18)
[2025-05-15 00:33] LABS: RED BLOOD CELL COUNT 4.00 10^6/uL (4.2-5.4); WHITE BLOOD CELL COUNT,WBC 5.2 10^3/uL (5.0-10.0)
[2025-05-15 00:34] LABS: BASOPHILS PERCENT AUTO 0.8 % (0.0-1.0); EOSINOPHILS PERCENT AUTO 3.3 % (1.0-3.0); LYMPHOCYTES PERCENT AUTO 51.9 % (20.5-50.1); MONOCYTES PERCENT AUTO 16.9 % (2-8); NEUTROPHILS PERCENT AUTO 27.1 % (42.2-75.2); PLATELET COUNT,PLT 162 10^3/uL (150-450)
[2025-05-15 00:37] LABS: ALANINE AMINOTRANSFERASE,ALT 7 U/L (14-59); ASPARTATE AMNIOTRANSFERASE,AST 10 U/L (15-37); BILIRUBIN TOTAL 0.2 mg/dL (0.2-1.0); BLOOD UREA NITROGEN,BUN 15 mg/dL (7-18); CARBON DIOXIDE,CO2 25 mmol/L (21-32); CHLORIDE,CL 103 mmol/L (98-107); CREATININE 0.60 mg/dL (0.55-1.02); ETHANOL BLOOD MEDICAL 156 mg/dL (0); GLUCOSE RANDOM 90 mg/dL (70-99); POTASSIUM,K 3.3 mmol/L (3.5-5.1); PROTEIN TOTAL,TP 6.4 g/dL (6.4-8.2); SODIUM,NA 140 mmol/L (136-145)
[2025-05-15 00:40] LABS: A/G RATIO 0.78; ESTIMATED GFR 87 mL/min (>=60)
[2025-05-15] MEDS ORDERED: MVI, Adult with Vitamin K 10 ML, Folic Acid 1 MG, Thiamine 100 MG in Lactated Ringers 1... IV ONE (01:14)
[2025-05-15] MEDS ORDERED: Potassium Chloride 10% 20 MEQ/15 ML Soln 15 ML UD Cup PO ONE (01:15)
== END 2025-05-15 04:03 | disposition home or self-care (01) ==
LOC: DL.ED 00:05
DX: S16.1XXA Strain of muscle, fascia and tendon at neck level, initial encounter (principal); S09.90XA Unspecified injury of head, initial encounter; S00.83XA Contusion of other part of head, initial encounter; E87.6 Hypokalemia; F10.129 Alcohol abuse with intoxication, unspecified; I25.10 Atherosclerotic heart disease of native coronary artery without angina pectoris; E78.00 Pure hypercholesterolemia, unspecified; I10 Essential (primary) hypertension; J44.9 Chronic obstructive pulmonary disease, unspecified; K21.9 Gastro-esophageal reflux disease without esophagitis; E03.9 Hypothyroidism, unspecified; Z79.82 Long term (current) use of aspirin; Z79.899 Other long term (current) drug therapy; Z88.0 Allergy status to penicillin; Z88.8 Allergy status to other drugs, medicaments and biological substances; Y90.6 Blood alcohol level of 120-199 mg/100 ml; W01.198A Fall on same level from slipping, tripping and stumbling with subsequent striking against other object, initial encounter; Y93.89 Activity, other specified
CPT/HCPCS: 36415; 70450; 72125; 80053; 80307; 83735; 85025; 96365; 99283; 99285; A9270; J1808; J3411; J7120; J3490